=== PATIENT | male | born 1980 | race Caucasian/White ===

== ENCOUNTER 2022-09-11 07:06 | Outpatient (REF) | payer OTHER, SELFPAY ==
--- NOTE | ~2022-09-11 | XR_ITS ---
EXAMINATION: XR KNEE STANDING, BILATERAL XR KNEE LEFT CLINICAL INFORMATION: Left knee pain. COMPARISON: 10/22/2017. TECHNIQUE: AP standing view of both knees and patella sunrise view and lateral left knee studies. FINDINGS: No significant abnormality of either knee on AP standing view. Joint spaces are maintained. There is minimal spurring about the medial aspect of the medial tibial plateau. No effusion is appreciated. There is some prominent spurring seen about the tibial tuberosity without adjacent soft tissue edema. XR/XR knee LT 2V IMPRESSION: No significant left knee abnormality identified. No significant abnormality AP view of the right knee.
--- NOTE | ~2022-09-11 | XR_ITS ---
EXAMINATION: XR KNEE STANDING, BILATERAL XR KNEE LEFT CLINICAL INFORMATION: Left knee pain. COMPARISON: 10/22/2017. TECHNIQUE: AP standing view of both knees and patella sunrise view and lateral left knee studies. FINDINGS: No significant abnormality of either knee on AP standing view. Joint spaces are maintained. There is minimal spurring about the medial aspect of the medial tibial plateau. No effusion is appreciated. There is some prominent spurring seen about the tibial tuberosity without adjacent soft tissue edema. XR/XR knee standing BI IMPRESSION: No significant left knee abnormality identified. No significant abnormality AP view of the right knee.
== END 2022-09-11 07:07 | disposition home or self-care (01) ==
LOC: HO.HOSX 07:06
PROVIDERS: Visit Provider Physician Assistant
DX: S83.422A Sprain of lateral collateral ligament of left knee, initial encounter (principal); M23.92 Unspecified internal derangement of left knee
CPT/HCPCS: 73560; 73565; 99202

== ENCOUNTER 2022-09-11 10:56 | Outpatient (AMB) | payer OTHER, SELFPAY ==
--- NOTE | 2022-09-11 11:09 | A.OFFVIS_ITS ---
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 Patient reports on August 17, 2022 while playing basketball he jumped up for ball and with landing he heard a pop. He had swelling the next day and was difficult to bend or straighten knee. He presented to [facility] ER where xrays were taken and was advised to follow up with orthopedic. He uses a crutch to ambulate. Currently has discomfort with full weight bear. States knee feels like unstable and not strong. His pain is worse with activity. Denies numbness or tingling. Finds some relief cold compress and topical cream. 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 He states he was playing basketball when he jumped up for the ball and landing with hearing a pop, 08/17/22. He reports he had swelling in the knee the next day and had difficulty bending or extending his knee. He was seen at [facility] ER where x-rays were performed and he was advised to see our office. He states he has discomfort in his knee with full weight bearing. His pain is aggravated with activity. He also c/o weakness and instability in his knee. He denies any numbness or tingling. He finds mild relief with cold compress and topical cream. He is using crutches to ambulate. He was seen with Dr. Rubio a few years ago for his right knee meniscus tear. [facility] Medical History Ear anomaly Gilbert syndrome Lump Swelling Surgical History H/O vasectomy Family History Mother Cancer Heart problem Father No problems noted. 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 Review of Systems Const All systems reviewed & are unremarkable except as noted in HPI and below Physical Exam Vital Signs: BMI result Body Mass Index 26.3 Const General: cooperative, healthy appearing, comfortable, no acute distress, well developed and alert Orientation/consciousness: patient oriented x3 HEENT Head: Yes normal to inspection, Yes normocephalic and Yes atraumatic Eyes General: appearance normal, both eyes and all related structures Resp Effort & Inspection: normal respiratory effort and able to speak in complete sentences Cardio Rate: regular rate Peripheral pulses: Peripheral pulses 2+ throughout GI Palpation (GI): Soft to palpation Skin Lesions: no lesions Rashes: no rashes Neuro General: patient oriented x3 Extrem Other: Left knee: Skin intact, no erythema or joint effusion. Tenderness along the lateral joint line. Full ROM with crepitus. Negative Paola?s. No ligamentous laxity. NVI. Results Reviewed Results Reviewed: Xrays were obtained in the office today and personally reviewed by me of the left knee show no acute frature or dislocation Assessment & Plan Assessment & Plan (1) Knee LCL sprain: Code(s): S83.429A - Sprain of lateral collateral ligament of unspecified knee, initial encounter (2) Internal derangement of left knee: Code(s): M23.92 - Unspecified internal derangement of left knee Plan We discussed options which include MRI imaging which we will proceed with. I also gave him some home exercises to work on. He was also fit for an off the shelf knee brace which he will wear for stability. I will see him back when the scan is complete. Orders: Orders XR knee standing BI Today M25.561 - Pain in right knee, M25.562 - Pain in left knee MR knee LT wo con Today M23.92 - Unspecified internal derangement of left knee, S83.429A - Sprain of lateral collateral ligament of unspecified knee, initial encounter Patient Instructions: Scribed for Marysol Ramirez PA-C, by Roe Gardner medical administrative technician, on 09/11/2022 at 11:15 AM EST. IMarysol PA-C, have personally reviewed and agree with the information entered by the scribe. Coding Level of Care Code New Pt Level 3 (97608) Diagnoses Knee LCL sprain S83.429A Internal derangement of left knee M23.92
[2022-09-11 11:11] VITALS: BMI 26.3
== END 2022-09-11 12:03 | disposition home or self-care (01) ==
PROVIDERS: PCP Physician Assistant; Visit Provider Physician Assistant
DX: S83.422A Sprain of lateral collateral ligament of left knee, initial encounter (principal); M23.92 Unspecified internal derangement of left knee
CPT/HCPCS: 99203

== ENCOUNTER 2022-10-02 09:12 | Outpatient (REF) | payer OTHER, SELFPAY ==
[2022-10-02 14:37] LABS: Creatinine Urine 218.54 mg/dL; Microalbum/Creatinine Ratio Ur 2.7 ug/mg cr
== END 2022-10-02 09:13 | disposition home or self-care (01) ==
LOC: HO.CHCLDS 09:12
PROVIDERS: Visit Provider Family Medicine
DX: R80.9 Proteinuria, unspecified (principal)
CPT/HCPCS: 82043

== ENCOUNTER 2022-10-29 18:55 | Outpatient (REF) | payer OTHER, SELFPAY ==
--- NOTE | ~2022-10-29 | MR_ITS ---
EXAMINATION: MR KNEE WITHOUT CONTRAST, LEFT CLINICAL INFORMATION: Left knee pain COMPARISON: None available. TECHNIQUE: MRI of the knee without contrast was performed using routine sequences on a high-field scanner. FINDINGS: MENISCI: Medial Meniscus: Irregular inner margin tearing and a horizontal tear of the posterior horn which extends through the meniscal periphery. Tearing extends to the junction with the meniscal body. Lateral Meniscus: Intact LIGAMENTS: Cruciate: Mucoid degeneration of the ACL. Cannot exclude superimposed interstitial partial tearing. The posterior cruciate ligament is intact. Collateral: Intact EXTENSOR MECHANISM: Intact ARTICULAR CARTILAGE/BONE: Patellofemoral Compartment: Focal cartilage irregularity of the medial patellar facet. Medial Compartment: Normal Lateral Compartment: Normal JOINT FLUID AND BURSAE: No significant joint effusion. MR/MR knee LT wo con IMPRESSION: 1. Irregular inner margin and horizontal tearing of the posterior horn of the medial meniscus extending to the junction with the meniscal body. 2. Mucoid degeneration of the ACL. Cannot exclude superimposed interstitial partial tearing. 3. Mild patellofemoral compartment osteoarthritis. No significant joint effusion.
== END 2022-10-29 18:56 | disposition home or self-care (01) ==
LOC: HO.MRI 18:55
PROVIDERS: PCP Family Medicine; Visit Provider Physician Assistant
DX: S83.422D Sprain of lateral collateral ligament of left knee, subsequent encounter (principal); M23.92 Unspecified internal derangement of left knee
CPT/HCPCS: 73721

== ENCOUNTER 2022-11-05 09:20 | Outpatient (AMB) | payer OTHER, SELFPAY ==
--- NOTE | 2022-11-05 09:51 | A.OFFVIS_ITS ---
Intake Vital Signs 11/05/22 09:54 Height 5 ft 8 in Weight 173 lb BMI 26.3 Intake Visit Reasons: OV- MRI review Left knee Intake Note: Juan David a 42 year old male who presents today for an MRI review of left knee s/p basketball injury on 08/17/22. Patient reports some improvement with weight bear but states he is still limping. Currently has more discomfort than pain. Avoids activity. Allergies No Known Allergies Allergy (Verified 11/05/22 09:54) HPI OV- MRI review Left knee HPI Details 42-year-old male who returns to the [facility] today for an MRI review of left knee s/p basketball injury, 08/17/22. He states he has improvement in his pain with bearing weight but he does c/o limping and discomfort in his knee. His pain is aggravated with stretching, walking and with sudden movements. He also has limited ROM and tries to avoid activities as much as possible. He denies any locking, clicking or knee giving out. PENDING SALE TO [facility] Medical History Ear anomaly Gilbert syndrome Lump Swelling Surgical History H/O vasectomy Family History Mother Cancer Heart problem Father No problems noted. 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 Review of Systems Const All systems reviewed & are unremarkable except as noted in HPI and below Physical Exam Vital Signs: BMI result Body Mass Index 26.3 Const General: cooperative, healthy appearing, comfortable, no acute distress, well developed and alert Orientation/consciousness: patient oriented x3 HEENT Head: Yes normal to inspection, Yes normocephalic and Yes atraumatic Eyes General: appearance normal, both eyes and all related structures Resp Effort & Inspection: normal respiratory effort and able to speak in complete sentences Cardio Rate: regular rate Peripheral pulses: Peripheral pulses 2+ throughout GI Palpation (GI): Soft to palpation Skin Lesions: no lesions Rashes: no rashes Neuro General: patient oriented x3 Extrem Other: Left knee: Skin intact, no erythema or joint effusion. Tenderness along the medial joint line. Full ROM with crepitus. Positive Paola?s. No ligamentous laxity. NVI. Results Reviewed Results Reviewed: IMPRESSION: 1. Irregular inner margin and horizontal tearing of the posterior horn of the medial meniscus extending to the junction with the meniscal body. 2. Mucoid degeneration of the ACL. Cannot exclude superimposed interstitial partial tearing. 3. Mild patellofemoral compartment osteoarthritis. No significant joint effusion. Assessment & Plan Assessment & Plan (1) Tear of medial meniscus of left knee: Code(s): S83.242A - Other tear of medial meniscus, current injury, left knee, initial encounter Qualifiers: Encounter type: initial encounter Meniscus tear of knee type: unspecified type Tear current or old: current Qualified Code(s): S83.242A - Other tear of medial meniscus, current injury, left knee, initial encounter Plan I discussed the extent of the injury to the patient and options available which include surgical intervention. I explained the procedure in detail along with the length of recovery and rehab course. I explained the risk, benefits and alternatives. Risk including, but not limited to infection, blood clots, bleeding, ongoing pain and stiffness. I answered all their questions and with their understanding they have consented to move forward with left knee arthroscopy with Dr. Rubio. The patient will be booked accordingly. Patient Instructions: Scribed for Marysol Ramirez PA-C, by Roe Gardner medical office rep, on 11/05/2022 at 9:30 AM LAKISHA. Marysol Tierney PA-C, have personally reviewed and agree with the information entered by the scribe. Coding Level of Care Code Est Pt Level 4 (08927) Diagnoses Tear of medial meniscus of left knee, current, unspecified tear type, initial encounter S83.242A Encounter type: initial encounter Meniscus tear of knee type: unspecified type Tear current or old: current
[2022-11-05 09:54] VITALS: BMI 26.3
== END 2022-11-05 11:35 | disposition home or self-care (01) ==
PROVIDERS: PCP Family Medicine; Visit Provider Physician Assistant
DX: S83.242A Other tear of medial meniscus, current injury, left knee, initial encounter (principal)
CPT/HCPCS: 99214

== ENCOUNTER → 2022-11-05 09:20 | Outpatient (BNVA) | payer OTHER, SELFPAY | PROVIDERS: PCP Family Medicine; Visit Provider Physician Assistant ==

== ENCOUNTER 2022-11-17 12:30 | Outpatient (AMB) | payer OTHER, SELFPAY ==
[2022-11-17 12:33] VITALS: BMI 26.3
--- NOTE | 2022-11-17 12:33 | A.OFFVIS_ITS ---
Intake Vital Signs 11/17/22 12:33 Height 5 ft 8 in Weight 173 lb BMI 26.3 Intake Visit Reasons: Pre-Op LT knee 11/16/22NE Intake Note: Juan David 42 yr old malepresnets today for his Pre op visit for his left knee schedule with Dr. Rubio. Pain management signed and reviewed. Allergies No Known Allergies Allergy (Verified 11/17/22 12:35) HPI Pre-Op LT knee 11/16/22NE HPI Details Juan David is a 42 year old man who presents to discuss his left knee MMT He says he is doing better than he was previously, but he continues to have pain with activity. He has been avoiding any sports activities or other high-impact activities which cause him pain. His injury occurred on 08/17/22 while playing Basketball. [facility] Medical History Ear anomaly Gilbert syndrome Lump Swelling Surgical History (Reviewed 11/05/22 @ 09:57 by Nanci Sepulveda [facility]) H/O vasectomy Family History Mother Cancer Heart problem Father No problems noted. 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 Review of Systems Const All systems reviewed & are unremarkable except as noted in HPI and below Physical Exam Vital Signs: BMI result Body Mass Index 26.3 Const General: no acute distress, alert and awake Orientation/consciousness: patient oriented x3 HEENT Head: Yes normocephalic and Yes atraumatic Eyes EOM: EOMs intact bilaterally Resp Effort & Inspection: normal respiratory effort and able to speak in complete sentences Cardio Jugular venous distension: no JVD Skin General skin exam: turgor normal Rashes: no rashes Neuro General: patient oriented x3 Extrem Other: Left Knee: Full ROM No effusion Mild TTP medial compartment + medial elida's Psych Appearance: grossly normal Affect: normal affect Attitude: cooperative Results Reviewed Results Reviewed: I personally reviewed relevant MR images 1. Irregular inner margin and horizontal tearing of the posterior horn of the medial meniscus extending to the junction with the meniscal body. 2. Mucoid degeneration of the ACL. Cannot exclude superimposed interstitial partial tearing. 3. Mild patellofemoral compartment osteoarthritis. No significant joint effusion. Assessment & Plan Assessment & Plan (1) Tear of medial meniscus of left knee: Code(s): S83.242A - Other tear of medial meniscus, current injury, left knee, initial encounter Plan: This is a 42 year old man with a left MMT, DOI: 08/17/22 while playing Basketball. He continues to have pain with daily activity, but says this has improved somewhat from prior. He ambulates with antalgia and feels limited in his activities, particularly playing sports. I recommend left knee meniscectomy.. I discussed the risks, benefits, and alternatives including, but not limited to, the risk of pain, infection, stiffness, need for further surgery as well as potential medical complications such as blood clots, pulmonary embolism and cardiac complications. I discussed the recovery timeline and process as well as the importance of PT. Juan David is a good candidate for this surgery, and he wishes to proceed with this decision. Plan Scribed for Jeffery Rubio MD by Brock Javed, medical physics teacher, on 11/17/22 at 12:45 PM, EST. Coding Level of Care Code Est Pt Level 4 (17407) Diagnoses Tear of medial meniscus of left knee S83.242A
== END 2022-11-17 12:47 | disposition home or self-care (01) ==
PROVIDERS: PCP Family Medicine; Visit Provider Orthopaedic Surgery
DX: S83.242A Other tear of medial meniscus, current injury, left knee, initial encounter (principal)
CPT/HCPCS: 99214

== ENCOUNTER → 2022-11-17 12:30 | Outpatient (BNVA) | payer OTHER, SELFPAY | PROVIDERS: PCP Family Medicine; Visit Provider Orthopaedic Surgery ==

== ENCOUNTER 2022-11-26 08:10 | Day surgery (SDC) | payer OTHER, SELFPAY ==
[2022-11-20 13:18] VITALS: BMI 26.3
[2022-11-26] VITALS (7 sets, daily range): BP systolic 131–149; BP diastolic 85–92; PULSE 65–80; RESP 16–20; TEMP 36.1–36.6; O2SAT 98–100
--- NOTE | 2022-11-26 08:50 | HO.ANESPROP2 ---
HPI - Anesthesia Eval Consult details Narrative: for knee arthroscopy PMFSH Active Problems Active Problems: All Active Problems (Updated 11/17/22 @ 12:39 by Brock Javed) Tear of medial meniscus of left knee (Acute) Internal derangement of left knee (Acute) Knee LCL sprain (Acute) Swelling (Acute) Ear anomaly (Acute) Lump (Acute) Past Medical History Medical History Swelling Ear anomaly Lump Gilbert syndrome Family History Family History Mother Cancer Heart problem Father No problems noted. 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 Meds Allergies Allergy/AdvReac Type Severity Reaction Status Date / Time No Known Allergies Allergy Verified 11/17/22 12:35 Home Medications Medication Instructions Recorded Confirmed Last Taken Type No Known Home Meds 11/05/22 11/05/22 Unknown History Exam Exam Date and Time: November 26, 2022 0850 Height,Weight and Vital Signs: Height 5 ft 8 in Weight 78.471 kg Last Vital Signs Temp 97 F 11/26/22 08:12 Pulse 80 11/26/22 08:12 Resp 20 11/26/22 08:12 BP 149/88 H 11/26/22 08:12 Pulse Ox 98 11/26/22 08:12 O2 Del Method Room Air 11/26/22 08:12 Airway Mallampati Class: II TM Dist: >3cm Neck ROM: Full Heart: rrr Lungs: cta Assessment and Plan Assessment Anesthesia Assessment: Anesthesia Plan Discussed and Chart Reviewed Final Anesthetic Review Family History of Problems with Anesthesia: No History of Problems with Anesthesia: No NPO: Yes ASA Class: II Final Preanesthetic Review: No Changes in Pt Med Stat, Meds/Allgs Chart Reviewed, Consent Obtained/Reviewed and Anes Risks/Benef Reviewed Patient Risk: Low Procedure Risk: Low Anesthetic Plan Anesthetic Plan: GA Disposition: Standard PACU
--- NOTE | 2022-11-26 10:19 | MHC.SHP ---
Pre-Procedural Eval Section A Date of Service: 11/26/22 The patient is an INPATIENT: No Changes since office visit: No Cold of Flu in the past 2 weeks, No New Medical Problems, No Changes in Medication and No Patient answered all questions The History & Physical has been completed within 30 days and I have reviewed it.: Yes Section B Chief Complaint: Other tear of medial meniscus, current injury, lef Allergies: Allergies Allergy/AdvReac Type Severity Reaction Status Date / Time No Known Allergies Allergy Verified 11/17/22 12:35 Plan I have reviewed the history and physical and performed a pertinent physical examination on my patient. No changes have occurred unless specified. Time Spent With Patient Time: Total time managing care of this patient today ____ minutes.
--- NOTE | 2022-11-26 11:17 | PM.OP ---
Brief Operative Note Date of Service: 11/26/22 Pre-op diagnosis: Left knee MMT Post-op diagnosis: same Procedure: Left knee partial medial meniscectomy Implants: none Surgeon: Jeffery Rubio MD Anesthesia: GETA and local Was an Sales And Marketing Analyst used for this Procedure?: No Estimated blood loss (mL): 0 Tourniquet time (min): 22 IV fluids (mL): 750 Pathology: none sent Condition: stable Disposition: PACU
--- NOTE | 2022-12-09 14:23 | W.PM.OPN ---
Operative Note Operative Note Date of Service: 11/26/22 Narrative: Date of Service: 11/26/22 Pre-op diagnosis: Left knee MMT Post-op diagnosis: same Procedure: Left knee partial medial meniscectomy Implants: none Surgeon: Jeffery Rubio MD Anesthesia: GETA and local Was an Explosive Technician used for this Procedure?: No Estimated blood loss (mL): 0 Tourniquet time (min): 22 IV fluids (mL): 750 Pathology: none sent Condition: stable Disposition: PACU Procedure in detail: Patient was brought to the operating room placed supine on the arthroscopic table and prepped and draped in standard sterile fashion. A time-out was called to identify proper site proper procedure proper surgeon and IV antibiotics per weight were administered. I began by exsanguinating the limb and insufflating tourniquet to 300 mm Hg. Then made a standard anterolateral stab incision. The knee was insufflated with saline and 30 degree arthroscope was placed. There was grade 1 fibrillations of the patella but overall suprapatellar pouch and the gutters were clean. I descended into the medial compartment where I made my medial portal under direct visualization. There was obvious of complex tear of the body and posterior horn of the medial meniscus. The root was intact and there were minimal grade 1 changes of the tibial plateau medially. I used a combination of biter shaver and cautery to remove unstable portions of the meniscus. Approximately 40% of the meniscal volume was removed. Once I was satisfied with the extent of meniscectomy the ACL was examined and found to be intact and the lateral compartment also was without the need for intervention. I then removed all instrumentation and closed the portals with skin glue. 25 mL of 2% Marcaine with epinephrine was injected into the joint and the surrounding soft tissues. Patient was then placed in sterile dressing extubated brought recovery room stable condition. There were no known complications.
== END 2022-11-26 12:47 | disposition home or self-care (01) ==
PROVIDERS: PCP Family Medicine; Visit Provider Orthopaedic Surgery
PROC: (CPT 29870; principal; 2022-11-26 10:10)
DX: S83.242A Other tear of medial meniscus, current injury, left knee, initial encounter (principal); X58.XXXA Exposure to other specified factors, initial encounter; E80.4 Gilbert syndrome; Y93.67 Activity, basketball; Y92.9 Unspecified place or not applicable; Y99.9 Unspecified external cause status
CPT/HCPCS: 29881; J0131; J0171; J0690; J1100; J1885; J2405; J2795; J3010

== ENCOUNTER → 2022-11-26 08:10 | Outpatient (BNV) | payer OTHER, SELFPAY | PROVIDERS: PCP Family Medicine; Visit Provider Orthopaedic Surgery | DX: S83.242A Other tear of medial meniscus, current injury, left knee, initial encounter (principal) | CPT/HCPCS: 29881 ==

== ENCOUNTER 2022-12-02 14:30 | Outpatient (AMB) | payer OTHER, SELFPAY ==
--- NOTE | 2022-12-02 14:37 | MHC.OFFVIS ---
Intake Intake Visit Reasons: PO LT knee 11/26/22 Intake Note: Juan David is a 42 year old male who presents today with no crutches for a post op appointment s/p LT knee 11/26/22. Patient reports doing well having some discomfort around the incision area. Allergies No Known Allergies Allergy (Verified 12/02/22 14:37) HPI PO LT knee 11/26/22 HPI Details 42-year-old male who presents in the office today 6 days status post left knee partial medial menisectomy, which was performed on 11/26/[address] Rubio. The patient reports he is doing well. He states he has some discomfort around the incision site. He states he has not been walking a lot. He states he has been staying in bed due to over protecting the left knee. He states today is the first day he has not used the crutches. He confirms stiffness in the left knee. He reports he does not have any physical therapy scheduled at this time. [facility] Medical History Swelling Ear anomaly Lump Gilbert syndrome Surgical History Hx of wisdom tooth extraction H/O vasectomy Family History Mother Cancer Heart problem Father No problems noted. 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 Steri-stripes intact. ROM is 10-100 degrees. NVI. Assessment & Plan Assessment & Plan (1) Tear of medial meniscus of left knee: Code(s): S83.242A - Other tear of medial meniscus, current injury, left knee, initial encounter Qualifiers: Encounter type: subsequent encounter Meniscus tear of knee type: unspecified type Tear current or old: unspecified Qualified Code(s): S83.242D - Other tear of medial meniscus, current injury, left knee, subsequent encounter Plan Mr. Muriel Jovel is a 42-year-old male who presents in the office today 6 days status post left knee partial medial menisectomy, which was performed on 11/26/[address] Rubio. The patient reports he is doing well. He states he has some discomfort around the incision site. He states he has not been walking a lot. He states he has been staying in bed due to over protecting the left knee. He states today is the first day he has not used the crutches. He confirms stiffness in the left knee. He reports he does not have any physical therapy scheduled at this time. The patient will be referred to physical therapy to work begin to work on ROM. I educated the patient that he may begin to return to activities as tolerated. Follow up will be in 4 weeks for a ROM check, or sooner if needed. Patient Instructions: Scribed for Sulma Mendez PA-C by Bailee Arredondo medical transcription editor, on 12/02/2022 at 2:35 pm, EST. Coding Level of Care Code Global (12608) Diagnoses Tear of medial meniscus of left knee, unspecified tear type, unspecified whether old or current tear, subsequent encounter S83.242D Encounter type: subsequent encounter Meniscus tear of knee type: unspecified type Tear current or old: unspecified
== END 2022-12-02 15:17 | disposition home or self-care (01) ==
PROVIDERS: PCP Family Medicine; Visit Provider Physician Assistant
DX: S83.242D Other tear of medial meniscus, current injury, left knee, subsequent encounter (principal)
CPT/HCPCS: 99024

== ENCOUNTER → 2022-12-02 14:30 | Outpatient (BNVA) | payer OTHER, SELFPAY | PROVIDERS: PCP Family Medicine; Visit Provider Physician Assistant ==

== ENCOUNTER 2022-12-15 08:40 | Outpatient (REF) | payer OTHER, SELFPAY ==
[2022-12-15 14:49] LABS: Cholesterol 205 mg/dL (<200); HDL Cholesterol 52 mg/dL (>40); LDL Cholesterol Calculated 132 mg/dL (<100); Triglycerides 107 mg/dL (<150)
== END 2022-12-15 08:41 | disposition home or self-care (01) ==
LOC: HO.CHCLDS 08:40
PROVIDERS: Visit Provider Family Medicine
DX: E78.5 Hyperlipidemia, unspecified (principal)
CPT/HCPCS: 36415; 80061

== ENCOUNTER 2023-05-06 09:05 | Outpatient (REF) | payer OTHER, SELFPAY ==
[2023-05-06 13:25] LABS: Alanine Aminotransferase 18 U/L (0-40); Albumin Level 4.5 g/dL (3.5-5.0); Alkaline Phosphatase 54 U/L (39-117); Aspartate Amino Transferase 22 U/L (5-37); Bilirubin Direct 0.5 mg/dL (0.0-0.5); Bilirubin Total 1.7 mg/dL (0.0-1.0); Total Protein 7.6 g/dL (6.5-8.0)
== END 2023-05-06 09:06 | disposition home or self-care (01) ==
LOC: HO.CHCLDS 09:05
PROVIDERS: Visit Provider Family Medicine
DX: E78.5 Hyperlipidemia, unspecified (principal)
CPT/HCPCS: 36415; 80076

== ENCOUNTER 2023-05-14 08:45 | Outpatient (REF) | payer OTHER, SELFPAY ==
[2023-05-14 14:38] LABS: MANUAL DIFF FLAG NO
[2023-05-14 15:12] LABS: Basophils Absolute Auto 0.1 X10*3/uL (0.0-0.2); Basophils Percent Auto 0.7 % (0-2); Eosinophils Absolute Auto 0.2 X10*3/uL (0.0-0.4); Hematocrit 45.6 % (42.0-52.0); Imm Gran Abs Auto 0.02 X10*3/uL (0.00-0.03); Imm Gran Pct Auto 0.3 % (0.0-0.4); Immature Retic Fraction 6.8 % (2.3-13.4); Lymphocytes Percent Auto 26.6 % (20-40); Mean Corpuscular HGB Conc 32.9 g/dl (31.0-36.0); Mean Corpuscular Hemoglobin 28.5 pg (27.0-33.0); Mean Corpuscular Volume 86.7 fL (80.0-98.0); Monocytes Absolute Auto 0.5 X10*3/uL (0.1-1.2); Monocytes Percent Auto 6.9 % (2-11); Neutrophils Absolute Auto 4.9 x10*3/uL (2.0-8.3); Neutrophils Percent Auto 63.5 % (45-73); Platelet Count 294 X10*3/uL (160-400); Red Blood Count 5.26 X10*6/uL (4.60-5.80); Red Cell Distribution Width 12.4 % (11.0-16.0); Retic HGB Equivalent 31.7 pg (30.0-35.0); Reticulocyte Percent 1.4 % (0.5-1.8); Reticulocytes Absolute 0.072 X10*6/uL (0.026-0.095); White Blood Count 7.7 X10*3/uL (4.8-10.8)
[2023-05-14 15:13] LABS: Alanine Aminotransferase 19 U/L (0-40); Albumin Level 4.5 g/dL (3.5-5.0); Alkaline Phosphatase 61 U/L (39-117); Anion Gap 11 (12-20); Aspartate Amino Transferase 21 U/L (5-37); Bilirubin Direct 0.4 mg/dL (0.0-0.5); Bilirubin Total 1.5 mg/dL (0.0-1.0); Blood Urea Nitrogen 17 mg/dL (9-16); Calcium 9.4 mg/dL (8.4-10.2); Carbon Dioxide 29 mmol/L (22-29); Chloride 105 mmol/L (96-108); Estimated Glomerular Filt Rate > 60; Gamma Glutamyl Transpeptidase 26 U/L (11-51); Glucose Random 92 mg/dL (60-115); Lactate Dehydrogenase 237 U/L (118-273); Potassium 3.9 mmol/L (3.3-5.1); Sodium 141 mmol/L (135-145); Total Protein 7.7 g/dL (6.5-8.0)
[2023-05-14 15:15] LABS: Prothrombin Time 11.7 SEC (11.1-13.3)
[2023-05-20 10:38] LABS: Haptoglobin 106 mg/dL (43-212)
== END 2023-05-14 08:46 | disposition home or self-care (01) ==
LOC: HO.CHCLDS 08:45
PROVIDERS: Visit Provider Family Medicine
DX: E80.6 Other disorders of bilirubin metabolism (principal)
CPT/HCPCS: 36415; 80053; 82248; 82977; 83010; 83615; 85025; 85045; 85610

== ENCOUNTER 2023-10-21 11:38 | Outpatient (REF) | payer OTHER, SELFPAY ==
[2023-10-21 14:26] LABS: MANUAL DIFF FLAG NO
[2023-10-21 14:35] LABS: Basophils Absolute Auto 0.1 X10*3/uL (0.0-0.2); Basophils Percent Auto 0.8 % (0-2); Eosinophils Absolute Auto 0.4 X10*3/uL (0.0-0.4); Hematocrit 45.1 % (42.0-52.0); Hemoglobin 15.1 g/dl (14.0-18.0); Imm Gran Abs Auto 0.02 X10*3/uL (0.00-0.03); Imm Gran Pct Auto 0.3 % (0.0-0.4); Lymphocytes Absolute Auto 1.8 X10*3/uL (1.2-4.9); Lymphocytes Percent Auto 23.8 % (20-40); Mean Corpuscular HGB Conc 33.5 g/dl (31.0-36.0); Mean Corpuscular Hemoglobin 28.2 pg (27.0-33.0); Mean Corpuscular Volume 84.3 fL (80.0-98.0); Mean Platelet Volume 11.8 fL (9.4-12.4); Monocytes Absolute Auto 0.5 X10*3/uL (0.1-1.2); Monocytes Percent Auto 6.6 % (2-11); Neutrophils Absolute Auto 4.7 x10*3/uL (2.0-8.3); Neutrophils Percent Auto 63.5 % (45-73); Platelet Count 328 X10*3/uL (160-400); Red Blood Count 5.35 X10*6/uL (4.60-5.80); Red Cell Distribution Width 12.2 % (11.0-16.0); White Blood Count 7.5 X10*3/uL (4.8-10.8)
[2023-10-21 14:59] LABS: Alanine Aminotransferase 28 U/L (0-40); Albumin Level 4.5 g/dL (3.5-5.0); Alkaline Phosphatase 58 U/L (39-117); Anion Gap 11 (12-20); Aspartate Amino Transferase 27 U/L (5-37); Bilirubin Total 1.2 mg/dL (0.0-1.0); Blood Urea Nitrogen 15 mg/dL (9-16); Calcium 9.9 mg/dL (8.4-10.2); Carbon Dioxide 29 mmol/L (22-29); Chloride 103 mmol/L (96-108); Cholesterol 212 mg/dL (<200); Estimated Glomerular Filt Rate > 60; Glucose Random 100 mg/dL (60-115); HDL Cholesterol 51 mg/dL (>40); LDL Cholesterol Calculated 138 mg/dL (<100); Sodium 139 mmol/L (135-145); Total Protein 7.9 g/dL (6.5-8.0); Triglycerides 116 mg/dL (<150)
[2023-10-21 15:09] LABS: PSA,Total (Free>4and<10) 1.74 ng/mL (0.00-4.00)
== END 2023-10-21 11:39 | disposition home or self-care (01) ==
LOC: HO.CHCLDS 11:38
PROVIDERS: Visit Provider Family Medicine
DX: E78.5 Hyperlipidemia, unspecified (principal); Z13.9 Encounter for screening, unspecified; Z12.5 Encounter for screening for malignant neoplasm of prostate
CPT/HCPCS: 36415; 80053; 80061; 84153; 85025

== ENCOUNTER 2024-05-05 11:41 | Outpatient (REF) | payer OTHER, SELFPAY ==
[2024-05-05 14:17] LABS: MANUAL DIFF FLAG NO
[2024-05-05 14:19] LABS: Basophils Absolute Auto 0.1 X10*3/uL (0.0-0.2); Eosinophils Absolute Auto 0.2 X10*3/uL (0.0-0.4); Eosinophils Percent Auto 2.6 % (0-4); Hematocrit 42.4 % (42.0-52.0); Hemoglobin 14.8 g/dl (14.0-18.0); Imm Gran Abs Auto 0.01 X10*3/uL (0.00-0.03); Imm Gran Pct Auto 0.2 % (0.0-0.4); Lymphocytes Absolute Auto 1.7 X10*3/uL (1.2-4.9); Lymphocytes Percent Auto 27.2 % (20-40); Mean Corpuscular HGB Conc 34.9 g/dl (31.0-36.0); Mean Corpuscular Hemoglobin 29.1 pg (27.0-33.0); Mean Corpuscular Volume 83.3 fL (80.0-98.0); Mean Platelet Volume 11.8 fL (9.4-12.4); Monocytes Absolute Auto 0.5 X10*3/uL (0.1-1.2); Monocytes Percent Auto 8.5 % (2-11); Neutrophils Absolute Auto 3.7 x10*3/uL (2.0-8.3); Neutrophils Percent Auto 60.5 % (45-73); Platelet Count 272 X10*3/uL (160-400); Red Blood Count 5.09 X10*6/uL (4.60-5.80); Red Cell Distribution Width 11.8 % (11.0-16.0); White Blood Count 6.1 X10*3/uL (4.8-10.8)
[2024-05-05 15:19] LABS: Alanine Aminotransferase 31 U/L (0-40); Albumin Level 4.7 g/dL (3.5-5.0); Alkaline Phosphatase 48 U/L (39-117); Anion Gap 10 (12-20); Aspartate Amino Transferase 32 U/L (5-37); Blood Urea Nitrogen 19 mg/dL (9-16); Calcium 9.5 mg/dL (8.4-10.2); Carbon Dioxide 30 mmol/L (22-29); Chloride 102 mmol/L (96-108); Estimated Glomerular Filt Rate > 60; Glucose Random 92 mg/dL (60-115); Potassium 3.9 mmol/L (3.3-5.1); Sodium 138 mmol/L (135-145); Total Protein 8.3 g/dL (6.5-8.0)
[2024-05-05 15:40] LABS: TSH reflex Free T4 1.24 uIU/mL (0.32-4.0); Vitamin D 25-OH Total 28.8 ng/mL (>30)
[2024-05-05 15:50] LABS: Vitamin B12 863 pg/mL (200-900)
[2024-05-06 08:28] LABS: HIV AB/AG Nonreactive (Nonreactive); HIV Num 1 0.06 S/CO (0.00-0.99); ~HepC Num1 0.12 S/CO (0.00-0.79); ~Hepatitis C Antibody Nonreactive (Nonreactive)
== END 2024-05-05 11:42 | disposition home or self-care (01) ==
LOC: HO.CHCLDS 11:41
PROVIDERS: Visit Provider Internal Medicine
DX: R42 Dizziness and giddiness (principal); R53.83 Other fatigue
CPT/HCPCS: 36415; 80053; 82306; 82607; 82746; 84443; 85025; 86803; 87389

== ENCOUNTER 2025-01-27 10:08 | Outpatient (REF) | payer OTHER, SELFPAY ==
[2025-01-27 15:08] LABS: MANUAL DIFF FLAG NO
[2025-01-27 15:14] LABS: Appearance Urine Turbid; Glucose Urine UA Negative (Negative); PH 6.5 (5.0-9.0); Specific Gravity - Urine 1.025 (1.005-1.025)
[2025-01-27 15:22] LABS: Hematocrit 44.4 % (42.0-52.0); Hemoglobin 14.9 g/dl (14.0-18.0); Imm Gran Abs Auto 0.01 X10*3/uL (0.00-0.03); Imm Gran Pct Auto 0.2 % (0.0-0.4); Lymphocytes Absolute Auto 1.6 X10*3/uL (1.2-4.9); Mean Corpuscular HGB Conc 33.6 g/dl (31.0-36.0); Mean Corpuscular Hemoglobin 28.8 pg (27.0-33.0); Mean Corpuscular Volume 85.9 fL (80.0-98.0); NRBC Abs Auto 0.000 X10*3/uL (0.0-0.012); NRBC Pct Auto 0.0 /100WBC (0.0-0.2); Platelet Count 269 X10*3/uL (160-400); Red Blood Count 5.17 X10*6/uL (4.60-5.80); White Blood Count 6.5 X10*3/uL (4.8-10.8)
[2025-01-27 15:44] LABS: Alanine Aminotransferase 36 U/L (0-40); Albumin Level 4.9 g/dL (3.5-5.0); Alkaline Phosphatase 51 U/L (39-117); Anion Gap 10 (12-20); Aspartate Amino Transferase 38 U/L (5-37); Blood Urea Nitrogen 16 mg/dL (9-16); Calcium 9.6 mg/dL (8.4-10.2); Carbon Dioxide 29 mmol/L (22-29); Chloride 104 mmol/L (96-108); Cholesterol 211 mg/dL (<200); Estimated Glomerular Filt Rate > 60; HDL Cholesterol 50 mg/dL (>40); Potassium 4.0 mmol/L (3.3-5.1); Sodium 139 mmol/L (135-145); Total Protein 7.7 g/dL (6.5-8.0); Triglycerides 111 mg/dL (<150)
[2025-01-27 15:49] LABS: PSA,Total (Free>4and<10) 0.79 ng/mL (0.00-4.00)
[2025-01-28 07:59] LABS: HBS Num1 170.02 mIU/mL (0-7.99); HBc Num1 0.11 S/CO (0.00-0.79); HBsAGNum1 0.43 S/CO (0.00-0.99); Hepatitis B Surface Antigen Negative (Negative); ~Hepatitis B Surface Antibody REACTIVE (Nonreactive)
== END 2025-01-27 10:09 | disposition home or self-care (01) ==
LOC: HO.CHCLDS 10:08
PROVIDERS: Visit Provider Family Medicine
DX: Z12.5 Encounter for screening for malignant neoplasm of prostate (principal); Z13.89 Encounter for screening for other disorder; E78.5 Hyperlipidemia, unspecified
CPT/HCPCS: 36415; 80053; 80061; 81001; 84153; 85025; 86704; 86706; 87340